=== PATIENT | female | born 1980 | race Caucasian/White ===

== ENCOUNTER 2016-08-16 10:20 | Inpatient (IN) | payer OTHER ==
[2016-08-16 11:01] VITALS: BMI 19.5
--- NOTE | 2016-08-16 13:01 | HP ---
Admission ROS [facility] Chief Complaint: I am here for rehab. Allergies/Adverse Reactions: Allergies Allergy/AdvReac Type Severity Reaction Status Date / Time No Known Allergies Allergy Verified 08/16/16 12:21 History of Present Illness: Pt is a 36yr old female with a history of cocaine/crack and cannabis dependence seeking rehab for treatment. Exam Limitations: No Limitations - Ebola screening Have you traveled outside of the country in the last 21 days: No Have you had contact with anyone from an Ebola affected area: No Have you been sick,other than usual withdrawal symptoms: No Do you have a fever: No - Review of Systems Constitutional: Loss of Appetite, Unintentional Wgt. Loss EENT: reports: No Symptoms Reported Respiratory: reports: No Symptoms reported Cardiac: reports: No Symptoms Reported GI: reports: Constipated, Poor Fluid Intake : reports: No Symptoms Reported Musculoskeletal: reports: No Symptoms Reported Integumentary: reports: Bruising (bruise healing scar to right side of forehead. ) Neuro: reports: Headache Endocrine: reports: No Symptoms Reported Hematology: reports: No Symptoms Reported Psychiatric: reports: Judgement Intact, Mood/Affect Appropiate, Orientated x3, Agitated, Anxious Other Systems: Reviewed and Negative Patient History - Patient Medical History Hx Anemia: No Hx Asthma: No Hx Chronic Obstructive Pulmonary Disease (COPD): No Hx Cancer: No Hx Cardiac Disorders: No Hx Congestive Heart Failure: No Hx Hypertension: No Hx Hypercholesterolemia: No Hx Pacemaker: No HX Cerebrovascular Accident: No Hx Seizures: No Hx Dementia: No Hx Diabetes: No Hx Gastrointestinal Disorders: No Hx Liver Disease: No Hx Genitourinary Disorders: No Hx Sexually Transmitted Disorders: No Hx Renal Disease (ESRD): No Hx Thyroid Disease: No Hx Human Immunodeficiency Virus (HIV): No (negative) Hx Hepatitis C: No (negative) Hx Depression: Yes Hx Suicide Attempt: No (at age 16yrs old; denies any S/H ideation) Hx Bipolar Disorder: Yes Hx Schizophrenia: No Other Medical History: PTSD/anxiety - Patient Surgical History Past Surgical History: Yes Hx Section: Yes (two) - PPD History Previous Implant?: Yes Documented Results: Negative w/o proof PPD to be Administered?: Yes - Reproductive History Patient is a Female of Child Bearing Age (11 -55 yrs old): Yes Last Menstrual Period: 07/29/16 Patient : No - Smoking Cessation Smoking history: Current every day smoker Have you smoked in the past 12 months: Yes Aproximately how many cigarettes per day: 7 Hx Chewing Tobacco Use: No Initiated information on smoking cessation: Yes 'Breaking Loose' booklet given: 08/16/16 - Substance & Tx. History Hx Alcohol Use: No Hx Substance Use: Yes Substance Use Type: Cocaine, Marijuana Hx Substance Use Treatment: Yes - Substances Abused Crack Route: Smoking Frequency: Daily Amount used: $40 Age of first use: 28 Date of Last Use: 08/15/16 Marijuana/Hashish Frequency: 3-6 times per week Amount used: 1 clip Age of first use: 16 Date of Last Use: 08/16/16 Family Disease History - Family Disease History Family Disease History: Diabetes: Grandparent, Other: Mother (bipolar) Admission Physical Exam [facility] - Vital Signs Vital Signs: Vital Signs - 24 hr 08/16/16 10:59 Temperature 96.9 F L Pulse Rate 92 H Respiratory 16 Rate Blood Pressure 152/58 - Physical General Appearance: Yes: Appropriately Dressed, Moderate Distress, Thin, Irritable, Anxious HEENTM: Yes: Normal Voice, Other (scar noted to forehead d/t fall weeks ago) Respiratory: Yes: Lungs Clear, Normal Breath Sounds Neck: Yes: No masses,lesions,Nodules Breast: Yes: Within Normal Limits Cardiology: Yes: Regular Rhythm, Regular Rate, S1, S2 Abdominal: Yes: Normal Bowel Sounds Genitourinary: Yes: Within Normal Limits Back: Yes: Normal Inspection Musculoskeletal: Yes: full range of Motion Extremities: Yes: Normal Inspection, Non-Tender, Tremors Neurological: Yes: Fully Oriented, Alert, Normal Response Integumentary: Yes: Normal Color Lymphatic: Yes: Within Normal Limits - Diagnostic (1) Crack cocaine use Current Visit: Yes Status: Chronic (2) Cannabis dependence Current Visit: Yes Status: Chronic (3) Nicotine dependence Current Visit: Yes Status: Chronic Qualifiers: Nicotine product type: cigarettes Substance use status: uncomplicated Qualified Code(s): F17.210 - Nicotine dependence, cigarettes, uncomplicated Cleared for Admission [facility] - Detox or Rehab [facility] Level of Care: Medically Managed Claeared for Rehab Admission: Yes [facility] Breath Alcohol Content Breath Alcohol Content: 0 Urine Pregancy Test - Result Urine Test Results: Negative- NO Line Present Urine Drug Screen - Results Drug Screen Negative: No Urine Drug Screen Results: THC-Marijuana, KHADAR-Cocaine
[2016-08-16] MEDS ORDERED: LOPERAMIDE HCL 2 MG CAPSULE PO PRN (13:20)
[2016-08-16] MEDS ORDERED: ACETAMINOPHEN 325 MG TABLET (FP) PO PRN (13:20)
[2016-08-16] MEDS ORDERED: MAGNESIUM HYDROX 2400MG/30ML ORAL SUSPENSION 30 ML CUP PO PRN (13:20)
[2016-08-16] MEDS ORDERED: NICOTINE POLACRILEX 4 MG GUM BUC PRN (13:20)
[2016-08-16] MEDS ORDERED: MENTHOL/PHENOL 1 EACH UD MM PRN (13:20)
[2016-08-16] MEDS ORDERED: MAG HYDROX/AL HYDROX/SIMETH 30 ML UNIT-DOSE CUP PO PRN (13:20)
[2016-08-16] MEDS ORDERED: guaiFENesin/D-METHORPHAN HB 10 ML UNIT-DOSE CUPS PO PRN (13:20)
[2016-08-16] MEDS ORDERED: P-EPHED 60MG/TRIPROLIDI 2.5MG TABLET PO PRN (13:20)
[2016-08-16] MEDS ORDERED: MAGNESIUM CITRATE 300 ML BOTTLE PO PRN (13:20)
[2016-08-16] MEDS ORDERED: PT OWN MED DRAWER 7, Y5N ONE (16:11)
[2016-08-16 19:59] LABS: MCH 30.1 pg (25.7-33.7); MCHC 33.2 g/dl (32.0-36.0); MEAN CELL VOLUME 90.8 fl (80-96); MEAN PLT VOLUME 10.1 fl (7.5-11.1); PLATELET COUNT 252 K/MM3 (134-434); RDW 13.4 % (11.6-15.6); WHITE BLOOD COUNT 5.7 K/mm3 (4.0-10.0)
[2016-08-16 20:07] LABS: URINE APPEARANCE CLEAR; URINE BILIRUBIN NEGATIVE (NEGATIVE); URINE BLOOD NEGATIVE (NEGATIVE); URINE COLOR LTYELLOW; URINE GLUCOSE (UA) NEGATIVE (NEGATIVE); URINE KETONE NEGATIVE (NEGATIVE); URINE LEUK ESTERASE NEGATIVE (NEGATIVE); URINE NITRITE NEGATIVE (NEGATIVE); URINE PROTEIN NEGATIVE (NEGATIVE); URINE UROBILINOGEN NEGATIVE E.U./dl (0.2-1.0)
[2016-08-16 20:19] LABS: ALBUMIN 4.1 g/dl (3.4-5.0); ALK PHOS 70 U/L (45-117); ANION GAP 9 (8-16); BILIRUBIN,TOTAL 0.5 mg/dL (0.2-1.0); CALCIUM 9.4 mg/dL (8.5-10.1); CO2 27 mmol/L (21-32); CREATININE 0.7 mg/dL (0.55-1.02); GLUCOSE,RANDOM 81 mg/dL (74-106); SGOT/AST 8 U/L (15-37); SGPT/ALT 13 U/L (12-78); TOT PROT 6.9 g/dl (6.4-8.2)
[2016-08-16] MEDS: DIVALPROEX 1,000 MG, DIVALPROEX 250 MG PO SCH (21:46)
[2016-08-16] MEDS: THIAMINE HCL 100 MG TABLET (FP) PO SCH (21:47)
[2016-08-16] MEDS ORDERED: OLANZapine 7.5 MG TABLET PO SCH (22:00)
[2016-08-16] MEDS ORDERED: GABAPENTIN 400 MG CAPSULE (FP) PO SCH (22:00)
[2016-08-16] MEDS ORDERED: DIVALPROEX SODIUM 500 MG TABLET E.C. PO SCH (22:00)
[2016-08-17 10:08] LABS: URINE APPEARANCE CLEAR; URINE BILIRUBIN NEGATIVE (NEGATIVE); URINE BLOOD NEGATIVE (NEGATIVE); URINE COLOR LTYELLOW; URINE GLUCOSE (UA) NEGATIVE (NEGATIVE); URINE KETONE NEGATIVE (NEGATIVE); URINE LEUK ESTERASE NEGATIVE (NEGATIVE); URINE NITRITE NEGATIVE (NEGATIVE); URINE PROTEIN NEGATIVE (NEGATIVE); URINE UROBILINOGEN NEGATIVE E.U./dl (0.2-1.0)
[2016-08-17] MEDS: PRENATAL VITAMINS W/ FOLIC ACID TABLET (FP) PO SCH (10:42)
[2016-08-17] MEDS: GABAPENTIN 400 MG CAPSULE (FP) PO SCH ×3 (10:43→21:43)
[2016-08-17 11:39] LABS: HIV 1 & 2 AB NEGATIVE; HIV 1 AGp24 NEGATIVE
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
--- NOTE | 2016-08-17 13:55 | EKG ---
Test Reason : Blood Pressure : / mmHG Vent. Rate : 070 BPM Atrial Rate : 070 BPM P-R Int : 174 ms QRS Dur : 094 ms QT Int : 406 ms P-R-T Axes : 073 075 065 degrees QTc Int : 438 ms NORMAL SINUS RHYTHM NORMAL ECG NO PREVIOUS ECGS AVAILABLE Confirmed by SAFIA PAINTING, SHARAN ([id number]) on 08/17/2016 1:55:19 PM Referred By: Danielle Trivedi Confirmed By:SHARAN BAIG MD
[2016-08-17] MEDS ORDERED: PT OWN MED DRAWER 7, Y5N ONE (20:37)
[2016-08-17] MEDS: OLANZapine 7.5 MG TABLET PO SCH (21:43)
[2016-08-17] MEDS: THIAMINE HCL 100 MG TABLET (FP) PO SCH (21:43)
[2016-08-17] MEDS: DIVALPROEX 1,000 MG, DIVALPROEX 250 MG PO SCH (21:44)
[2016-08-18] MEDS: PRENATAL VITAMINS W/ FOLIC ACID TABLET (FP) PO SCH (10:43)
[2016-08-18] MEDS: GABAPENTIN 400 MG CAPSULE (FP) PO SCH ×3 (10:44→21:33)
[2016-08-18] MEDS ORDERED: PT OWN MED DRAWER 7, Y5N ONE (20:03)
[2016-08-18] MEDS: DIVALPROEX SODIUM 500 MG TABLET E.C. PO SCH (21:33)
[2016-08-18] MEDS: OLANZapine 7.5 MG TABLET PO SCH (21:33)
[2016-08-18] MEDS: COLLOIDAL OATMEAL 1 BAR EACH TP PRN (21:34)
[2016-08-18] MEDS: THIAMINE HCL 100 MG TABLET (FP) PO SCH (21:34)
[2016-08-19] MEDS: GABAPENTIN 400 MG CAPSULE (FP) PO SCH (10:29)
[2016-08-19] MEDS: PRENATAL VITAMINS W/ FOLIC ACID TABLET (FP) PO SCH (10:29)
[2016-08-19] MEDS: GABAPENTIN 300 MG CAPSULE (FP) PO SCH ×2 (14:42→21:34)
[2016-08-19] MEDS ORDERED: PT OWN MED DRAWER 7, Y5N ONE (19:59)
[2016-08-19] MEDS: THIAMINE HCL 100 MG TABLET (FP) PO SCH (21:34)
[2016-08-19] MEDS: DIVALPROEX SODIUM 500 MG TABLET E.C. PO SCH (21:34)
[2016-08-19] MEDS: OLANZapine 7.5 MG TABLET PO SCH (21:34)
[2016-08-20] MEDS: GABAPENTIN 300 MG CAPSULE (FP) PO SCH ×3 (06:37→22:00)
[2016-08-20] MEDS: NICOTINE POLACRILEX 2 MG GUM BUC PRN ×2 (08:31→17:46)
[2016-08-20] MEDS: PRENATAL VITAMINS W/ FOLIC ACID TABLET (FP) PO SCH (10:28)
[2016-08-20] MEDS: IBUPROFEN 400 MG TABLET (FP) PO PRN (16:26)
[2016-08-20] MEDS: DIVALPROEX SODIUM 500 MG TABLET E.C. PO SCH (22:00)
[2016-08-20] MEDS: THIAMINE HCL 100 MG TABLET (FP) PO SCH (22:00)
[2016-08-20] MEDS: OLANZapine 7.5 MG TABLET PO SCH (22:02)
[2016-08-20] MEDS ORDERED: PT OWN MED DRAWER 7, Y5N ONE (22:02)
[2016-08-21] MEDS: GABAPENTIN 300 MG CAPSULE (FP) PO SCH ×3 (06:45→21:43)
[2016-08-21] MEDS: PRENATAL VITAMINS W/ FOLIC ACID TABLET (FP) PO SCH (10:32)
[2016-08-21] MEDS: NICOTINE POLACRILEX 2 MG GUM BUC PRN (15:48)
[2016-08-21] MEDS: IBUPROFEN 400 MG TABLET (FP) PO PRN (20:14)
[2016-08-21] MEDS: THIAMINE HCL 100 MG TABLET (FP) PO SCH (21:44)
[2016-08-21] MEDS: DIVALPROEX SODIUM 500 MG TABLET E.C. PO SCH (21:44)
[2016-08-21] MEDS ORDERED: PT OWN MED DRAWER 7, Y5N ONE (21:46)
[2016-08-21] MEDS: OLANZapine 7.5 MG TABLET PO SCH (21:47)
[2016-08-22] MEDS: GABAPENTIN 300 MG CAPSULE (FP) PO SCH ×3 (06:44→21:31)
[2016-08-22] MEDS: NICOTINE POLACRILEX 2 MG GUM BUC PRN (10:39)
[2016-08-22] MEDS: PRENATAL VITAMINS W/ FOLIC ACID TABLET (FP) PO SCH (10:39)
[2016-08-22] MEDS: NICOTINE 7 MG/24 HOURS TOPICAL PATCH TD SCH (15:49)
[2016-08-22] MEDS ORDERED: PT OWN MED DRAWER 7, Y5N ONE (20:01)
[2016-08-22] MEDS: OLANZapine 7.5 MG TABLET PO SCH (21:30)
[2016-08-22] MEDS: DIVALPROEX SODIUM 500 MG TABLET E.C. PO SCH (21:31)
[2016-08-22] MEDS: THIAMINE HCL 100 MG TABLET (FP) PO SCH (21:31)
[2016-08-23] MEDS: GABAPENTIN 300 MG CAPSULE (FP) PO SCH ×3 (06:10→21:41)
[2016-08-23] MEDS: NICOTINE 7 MG/24 HOURS TOPICAL PATCH TD SCH (10:37)
[2016-08-23] MEDS: PRENATAL VITAMINS W/ FOLIC ACID TABLET (FP) PO SCH (10:38)
[2016-08-23] MEDS: DIVALPROEX SODIUM 500 MG TABLET E.C. PO SCH (21:40)
[2016-08-23] MEDS: OLANZapine 7.5 MG TABLET PO SCH (21:41)
[2016-08-23] MEDS: THIAMINE HCL 100 MG TABLET (FP) PO SCH (21:41)
[2016-08-24] MEDS: GABAPENTIN 300 MG CAPSULE (FP) PO SCH ×3 (06:25→21:42)
[2016-08-24] MEDS: PRENATAL VITAMINS W/ FOLIC ACID TABLET (FP) PO SCH (11:08)
[2016-08-24] MEDS: NICOTINE 7 MG/24 HOURS TOPICAL PATCH TD SCH (11:09)
[2016-08-24] MEDS: THIAMINE HCL 100 MG TABLET (FP) PO SCH (21:42)
[2016-08-24] MEDS: DIVALPROEX SODIUM 500 MG TABLET E.C. PO SCH (21:42)
[2016-08-24] MEDS: OLANZapine 7.5 MG TABLET PO SCH (21:43)
[2016-08-25] MEDS: GABAPENTIN 300 MG CAPSULE (FP) PO SCH ×3 (06:28→21:39)
[2016-08-25] MEDS: PRENATAL VITAMINS W/ FOLIC ACID TABLET (FP) PO SCH (10:40)
[2016-08-25] MEDS: NICOTINE 7 MG/24 HOURS TOPICAL PATCH TD SCH (10:40)
[2016-08-25] MEDS ORDERED: MINERAL OIL/PETROLAT/WATER TOPICAL CREAM 454 GM JAR TP PRN (14:34)
[2016-08-25] MEDS: DIVALPROEX SODIUM 500 MG TABLET E.C. PO SCH (21:39)
[2016-08-25] MEDS: THIAMINE HCL 100 MG TABLET (FP) PO SCH (21:39)
[2016-08-25] MEDS: OLANZapine 7.5 MG TABLET PO SCH (21:40)
[2016-08-25] MEDS ORDERED: PT OWN MED DRAWER 7, Y5N ONE (23:44)
[2016-08-26] MEDS: GABAPENTIN 300 MG CAPSULE (FP) PO SCH ×3 (07:09→21:49)
[2016-08-26] MEDS: NICOTINE 7 MG/24 HOURS TOPICAL PATCH TD SCH (10:50)
[2016-08-26] MEDS: PRENATAL VITAMINS W/ FOLIC ACID TABLET (FP) PO SCH (10:50)
[2016-08-26] MEDS: THIAMINE HCL 100 MG TABLET (FP) PO SCH (21:48)
[2016-08-26] MEDS: DIVALPROEX SODIUM 500 MG TABLET E.C. PO SCH (21:49)
[2016-08-26] MEDS: OLANZapine 7.5 MG TABLET PO SCH (21:50)
[2016-08-27] MEDS: GABAPENTIN 300 MG CAPSULE (FP) PO SCH ×3 (06:16→21:29)
[2016-08-27] MEDS: NICOTINE 7 MG/24 HOURS TOPICAL PATCH TD SCH (10:11)
[2016-08-27] MEDS: PRENATAL VITAMINS W/ FOLIC ACID TABLET (FP) PO SCH (10:12)
[2016-08-27] MEDS: DIVALPROEX SODIUM 500 MG TABLET E.C. PO SCH (21:29)
[2016-08-27] MEDS: THIAMINE HCL 100 MG TABLET (FP) PO SCH (21:30)
[2016-08-27] MEDS: OLANZapine 7.5 MG TABLET PO SCH (21:30)
[2016-08-28] MEDS: GABAPENTIN 300 MG CAPSULE (FP) PO SCH ×3 (06:45→21:32)
[2016-08-28] MEDS: NICOTINE 7 MG/24 HOURS TOPICAL PATCH TD SCH (10:13)
[2016-08-28] MEDS: PRENATAL VITAMINS W/ FOLIC ACID TABLET (FP) PO SCH (10:13)
[2016-08-28] MEDS ORDERED: PT OWN MED DRAWER 7, Y5N ONE (10:16)
[2016-08-28] MEDS: OLANZapine 7.5 MG TABLET PO SCH (21:32)
[2016-08-28] MEDS: DIVALPROEX SODIUM 500 MG TABLET E.C. PO SCH (21:32)
[2016-08-28] MEDS: THIAMINE HCL 100 MG TABLET (FP) PO SCH (21:32)
[2016-08-29] MEDS: GABAPENTIN 300 MG CAPSULE (FP) PO SCH ×2 (06:19→13:12)
[2016-08-29] MEDS: NICOTINE 7 MG/24 HOURS TOPICAL PATCH TD SCH (10:17)
[2016-08-29] MEDS: PRENATAL VITAMINS W/ FOLIC ACID TABLET (FP) PO SCH (10:17)
[2016-08-29] MEDS: hydrOXYzine PAMOATE 50 MG CAPSULE (FP) PO PRN ×2 (13:26→18:32)
--- NOTE | 2016-08-29 14:34 | PN ---
Psychiatric Progress Note Vital Signs: Vital Signs Period Temp Pulse Resp BP Sys/Rich Pulse Ox Last 24 Hr 98.0 F 91 16-18 105/60 Date of Session: 08/29/16 Chief Complaint:: Arnold still nervious." HPI: Patient addressed Alcohol,Cannabis and Cocaine dependence comorbid with Bipolar disorder. ROS: unremarkable. Current Medications: Active Medications Generic Name Dose Route Start Last Admin Trade Name Freq PRN Reason Stop Dose Admin Acetaminophen 650 mg 08/16/16 13:20 08/29/16 13:12 Tylenol - PO 650 mg Q4H PRN Administration PAIN Al Hydroxide/Mg Hydroxide 30 ml 08/16/16 13:20 Mylanta Oral Suspension - PO Q6H PRN DYSPEPSIA Colloidal Oatmeal 1 applic 08/18/16 15:03 08/18/16 21:34 Aveeno Soap - TP 1 bar DAILY PRN Administration HYGEINE Diphenhydramine HCl 50 mg 08/16/16 13:20 Benadryl - PO HSMR1 PRN INSOMNIA Divalproex Sodium 1,000 mg 08/18/16 22:00 08/28/16 21:32 Depakote - PO 1,000 mg HS SOUMYA Administration Eucalyptus/Menthol/Phenol/Sorbitol 1 each 08/16/16 13:20 Cepastat Lozenge - MM Q4H PRN SORE THROAT Gabapentin 400 mg 08/29/16 22:00 Neurontin - PO TID SOUMYA Guaifenesin 10 ml 08/16/16 13:20 Robitussin Dm - PO Q6H PRN COUGH Hydroxyzine Pamoate 50 mg 08/16/16 13:20 08/29/16 13:26 Vistaril - PO 50 mg Q4H PRN Administration AGITATION Ibuprofen 400 mg 08/16/16 13:20 08/21/16 20:14 Motrin - PO 400 mg Q6H PRN Administration SEVERE PAIN Loperamide HCl 4 mg 08/16/16 13:20 Imodium - PO Q6H PRN DIARRHEA Magnesium Citrate 300 ml 08/16/16 13:20 Citroma - PO Q48H PRN CONSTIPATION Magnesium Hydroxide 30 ml 08/16/16 13:20 Milk Of Magnesia - PO DAILY PRN CONSTIPATION Multi-Ingredient Lotion 1 applic 08/25/16 14:34 03/12/17 10:15 Eucerin (Large Jar) - TP 1 applic BID PRN Administration DRY SKIN Nicotine 7 mg 08/22/16 15:30 08/29/16 10:17 Nicoderm Patch - TD 7 mg DAILY SOUMYA Administration Nicotine Polacrilex 2 mg 08/19/16 22:59 08/22/16 10:39 Nicorette Gum - BUC 2 mg Q2H PRN Administration NICOTINE REPLACEMENT RX Olanzapine 7.5 mg 08/17/16 22:00 08/28/16 21:32 Zyprexa - PO 7.5 mg HS SOUMYA Administration Multivit/Folic Acid/Iron 1 tab 08/17/16 10:00 08/29/16 10:17 Vitamins (Sjr) - PO 1 tab DAILY SOUMYA Administration Pseudoephedrine/Triprolidine 1 combo 08/16/16 13:20 Actifed - PO TID PRN NASAL CONGESTION Thiamine HCl 100 mg 08/16/16 22:00 08/28/16 21:32 Vitamin B1 - PO 100 mg HS SOUMYA Administration Current Side Effect: No Lab tests ordered: No Lab tests reviewed: Yes Provider note:: Chart was revuewed,patient was evaluated,medications and treatment plan discussed with the patient..She addressed mood instability, anxiety.Neurontin 300 mg po tid will be adjusted to 400 mg po tid. Psychoeducaton,supportive therapy has been provided. Total face to face time:: 35 Mental Status Exam - Mental Status Exam Alert and Oriented to: Time, Place, Person Cognitive Function: Grossly Intact Patient Appearance: Well Groomed Mood: Anxious Affect: Mood Congruent, Labile Patient Behavior: Cooperative Speech Pattern: Clear Voice Loudness: Normal Thought Process: Goal Oriented Thought Disorder: Not Present Hallucinations: Denies Suicidal Ideation: Denies Homicidal Ideation: Denies Insight/Judgement: Fair Sleep: Fair Appetite: Fair Muscle strength/Tone: Normal Gait/Station: Normal Psychiatric Treatment Plan - Problem List (1) Cannabis dependence Current Visit: Yes (2) Crack cocaine use Current Visit: Yes (3) Nicotine dependence Current Visit: Yes Qualifiers: Nicotine product type: cigarettes Substance use status: uncomplicated Qualified Code(s): F17.210 - Nicotine dependence, cigarettes, uncomplicated (4) Bipolar disorder Current Visit: Yes (5) Alcohol abuse Current Visit: Yes
[2016-08-29] MEDS: DIVALPROEX SODIUM 500 MG TABLET E.C. PO SCH (21:35)
[2016-08-29] MEDS: GABAPENTIN 400 MG CAPSULE (FP) PO SCH (21:36)
[2016-08-29] MEDS: diphenhydrAMINE HCL 50 MG CAPSULE PO PRN (21:37)
[2016-08-29] MEDS: THIAMINE HCL 100 MG TABLET (FP) PO SCH (21:39)
[2016-08-29] MEDS: OLANZapine 7.5 MG TABLET PO SCH (21:39)
[2016-08-30] MEDS: diphenhydrAMINE HCL 50 MG CAPSULE PO PRN ×2 (00:22→22:43)
[2016-08-30] MEDS: GABAPENTIN 400 MG CAPSULE (FP) PO SCH ×3 (06:47→21:26)
[2016-08-30] MEDS: hydrOXYzine PAMOATE 50 MG CAPSULE (FP) PO PRN ×4 (08:55→21:27)
[2016-08-30] MEDS: NICOTINE 7 MG/24 HOURS TOPICAL PATCH TD SCH (10:23)
[2016-08-30] MEDS: PRENATAL VITAMINS W/ FOLIC ACID TABLET (FP) PO SCH (10:23)
[2016-08-30] MEDS: DIVALPROEX SODIUM 500 MG TABLET E.C. PO SCH (21:25)
[2016-08-30] MEDS: OLANZapine 7.5 MG TABLET PO SCH (21:26)
[2016-08-30] MEDS: THIAMINE HCL 100 MG TABLET (FP) PO SCH (21:26)
[2016-08-30] MEDS: COLLOIDAL OATMEAL 1 BAR EACH TP PRN (21:27)
[2016-08-31] MEDS: GABAPENTIN 400 MG CAPSULE (FP) PO SCH ×3 (06:37→21:14)
[2016-08-31] MEDS: hydrOXYzine PAMOATE 50 MG CAPSULE (FP) PO PRN ×3 (06:37→19:05)
[2016-08-31] MEDS ORDERED: PT OWN MED DRAWER 7, Y5N ONE (08:59)
[2016-08-31] MEDS: PRENATAL VITAMINS W/ FOLIC ACID TABLET (FP) PO SCH (10:30)
[2016-08-31] MEDS: NICOTINE 7 MG/24 HOURS TOPICAL PATCH TD SCH (10:31)
[2016-08-31] MEDS: IBUPROFEN 400 MG TABLET (FP) PO PRN (13:15)
[2016-08-31] MEDS: THIAMINE HCL 100 MG TABLET (FP) PO SCH (21:13)
[2016-08-31] MEDS: diphenhydrAMINE HCL 50 MG CAPSULE PO PRN ×2 (21:14→22:49)
[2016-08-31] MEDS: OLANZapine 7.5 MG TABLET PO SCH (21:14)
[2016-08-31] MEDS: DIVALPROEX SODIUM 500 MG TABLET E.C. PO SCH (21:14)
[2016-09-01] MEDS: hydrOXYzine PAMOATE 50 MG CAPSULE (FP) PO PRN ×4 (06:08→20:06)
[2016-09-01] MEDS: GABAPENTIN 400 MG CAPSULE (FP) PO SCH ×3 (06:08→21:32)
[2016-09-01] MEDS: IBUPROFEN 400 MG TABLET (FP) PO PRN ×2 (06:31→13:34)
[2016-09-01] MEDS: PRENATAL VITAMINS W/ FOLIC ACID TABLET (FP) PO SCH (10:32)
[2016-09-01] MEDS: NICOTINE 7 MG/24 HOURS TOPICAL PATCH TD SCH (10:32)
[2016-09-01] MEDS: DIVALPROEX SODIUM 500 MG TABLET E.C. PO SCH (21:32)
[2016-09-01] MEDS: diphenhydrAMINE HCL 50 MG CAPSULE PO PRN ×2 (21:32→22:39)
[2016-09-01] MEDS: THIAMINE HCL 100 MG TABLET (FP) PO SCH (21:33)
[2016-09-01] MEDS: OLANZapine 7.5 MG TABLET PO SCH (21:33)
[2016-09-02] MEDS: GABAPENTIN 400 MG CAPSULE (FP) PO SCH ×3 (06:16→21:36)
[2016-09-02] MEDS: hydrOXYzine PAMOATE 50 MG CAPSULE (FP) PO PRN ×3 (06:17→18:18)
[2016-09-02] MEDS: NICOTINE 7 MG/24 HOURS TOPICAL PATCH TD SCH (10:55)
[2016-09-02] MEDS: PRENATAL VITAMINS W/ FOLIC ACID TABLET (FP) PO SCH (10:55)
[2016-09-02] MEDS: DIVALPROEX SODIUM 500 MG TABLET E.C. PO SCH (21:35)
[2016-09-02] MEDS: diphenhydrAMINE HCL 50 MG CAPSULE PO PRN ×2 (21:36→23:59)
[2016-09-02] MEDS: OLANZapine 7.5 MG TABLET PO SCH (21:36)
[2016-09-02] MEDS: THIAMINE HCL 100 MG TABLET (FP) PO SCH (21:36)
[2016-09-03] MEDS: GABAPENTIN 400 MG CAPSULE (FP) PO SCH ×3 (06:47→21:31)
[2016-09-03] MEDS: PRENATAL VITAMINS W/ FOLIC ACID TABLET (FP) PO SCH (10:26)
[2016-09-03] MEDS: hydrOXYzine PAMOATE 50 MG CAPSULE (FP) PO PRN ×3 (10:27→22:41)
[2016-09-03] MEDS: NICOTINE 7 MG/24 HOURS TOPICAL PATCH TD SCH (10:50)
[2016-09-03] MEDS: NICOTINE POLACRILEX 2 MG GUM BUC PRN (14:19)
[2016-09-03] MEDS ORDERED: PT OWN MED DRAWER 7, Y5N ONE (20:28)
[2016-09-03] MEDS: diphenhydrAMINE HCL 50 MG CAPSULE PO PRN (21:31)
[2016-09-03] MEDS: THIAMINE HCL 100 MG TABLET (FP) PO SCH (21:31)
[2016-09-03] MEDS: DIVALPROEX SODIUM 500 MG TABLET E.C. PO SCH (21:31)
[2016-09-03] MEDS: OLANZapine 7.5 MG TABLET PO SCH (21:32)
[2016-09-04] MEDS: GABAPENTIN 400 MG CAPSULE (FP) PO SCH ×3 (06:41→21:28)
[2016-09-04] MEDS: hydrOXYzine PAMOATE 50 MG CAPSULE (FP) PO PRN ×4 (06:43→21:28)
[2016-09-04] MEDS: PRENATAL VITAMINS W/ FOLIC ACID TABLET (FP) PO SCH (10:15)
[2016-09-04] MEDS: NICOTINE 7 MG/24 HOURS TOPICAL PATCH TD SCH (10:15)
[2016-09-04] MEDS: NICOTINE POLACRILEX 2 MG GUM BUC PRN ×2 (10:16→16:15)
[2016-09-04] MEDS: THIAMINE HCL 100 MG TABLET (FP) PO SCH (21:28)
[2016-09-04] MEDS: OLANZapine 7.5 MG TABLET PO SCH (21:28)
[2016-09-04] MEDS: DIVALPROEX SODIUM 500 MG TABLET E.C. PO SCH (21:28)
[2016-09-05] MEDS: diphenhydrAMINE HCL 50 MG CAPSULE PO PRN (00:56)
[2016-09-05] MEDS: GABAPENTIN 400 MG CAPSULE (FP) PO SCH ×3 (06:24→21:39)
[2016-09-05] MEDS: hydrOXYzine PAMOATE 50 MG CAPSULE (FP) PO PRN ×4 (06:24→21:42)
[2016-09-05] MEDS: NICOTINE 7 MG/24 HOURS TOPICAL PATCH TD SCH (10:06)
[2016-09-05] MEDS: PRENATAL VITAMINS W/ FOLIC ACID TABLET (FP) PO SCH (10:06)
[2016-09-05] MEDS: NICOTINE POLACRILEX 2 MG GUM BUC PRN ×2 (13:29→17:49)
[2016-09-05] MEDS: DIVALPROEX SODIUM 500 MG TABLET E.C. PO SCH (21:39)
[2016-09-05] MEDS: OLANZapine 7.5 MG TABLET PO SCH (21:40)
[2016-09-05] MEDS: THIAMINE HCL 100 MG TABLET (FP) PO SCH (21:40)
[2016-09-06] MEDS: hydrOXYzine PAMOATE 50 MG CAPSULE (FP) PO PRN (06:25)
[2016-09-06] MEDS: GABAPENTIN 400 MG CAPSULE (FP) PO SCH (06:25)
[2016-09-06 06:47] VITALS: BP 97/50; PULSE 81; TEMP 97.8
== END 2016-09-06 08:50 | disposition home or self-care (01) | DRG 895 ==
LOC: YASAS 10:20 → Y3E 13:54
PROVIDERS: ADMIT Psychiatry & Neurology Psychiatry; ATTEND Psychiatry & Neurology Psychiatry
PROC: HZ42ZZZ Group Counseling for Substance Abuse Treatment, Cognitive-Behavioral (ICD-10-PCS; principal; 2016-09-06)
DX: F12.20 Cannabis dependence, uncomplicated (principal); F10.10 Alcohol abuse, uncomplicated; F14.10 Cocaine abuse, uncomplicated; F17.210 Nicotine dependence, cigarettes, uncomplicated; F31.9 Bipolar disorder, unspecified
CPT/HCPCS: 36415; 80053; 80164; 81003; 85027; 86593; 87389; 93005; 93010